=== PATIENT | male | born 1990 | race Caucasian/White ===

== ENCOUNTER 2024-06-07 12:47 | Emergency (ER) | payer BC, OTHER, SELFPAY ==
[~2024-06-07] VITALS: Ht 182.9 cm; Wt 108.7 kg
[2024-06-07] MEDS: LIDOCAINE 2% MDV 20ML VIAL SC ONE (15:04)
[2024-06-07] MEDS ORDERED: AMOX875T2 PO (15:23)
[2024-06-07] MEDS ORDERED: BACI28.417 TOP (15:23)
[2024-06-07 15:27] LABS: RSV AMPLIFICATION NEGATIVE (NEGATIVE)
[2024-06-07] MEDS ORDERED: ONDA-282 PO (15:29)
[2024-06-07] MEDS: ONDANSETRON 4MG ORAL DISINTEGRATING TAB PO ONE (15:33)
[2024-06-07] MEDS: NEOSPORIN OINT 0.9 GM PKT TOP ONE (15:34)
[2024-06-07 15:44] VITALS: BP 200/97; TEMP 98.1; O2SAT 98
[2024-06-07 15:49] VITALS: BP 200/97
[2024-06-07] MEDS: hydroCHLOROthiazide 12.5 MG CAPSULE PO ONE (15:49)
== END 2024-06-07 15:56 | disposition home or self-care (01) ==
LOC: M ED 12:47
DX: S61.211A Laceration without foreign body of left index finger without damage to nail, initial encounter (principal); J32.9 Chronic sinusitis, unspecified; Y92.9 Unspecified place or not applicable; Y93.9 Activity, unspecified; Y99.9 Unspecified external cause status; I10 Essential (primary) hypertension; F10.10 Alcohol abuse, uncomplicated; Z88.8 Allergy status to other drugs, medicaments and biological substances; Z79.2 Long term (current) use of antibiotics; Z79.899 Other long term (current) drug therapy